=== PATIENT | female | born 1970 | race Two or more races ===

== ENCOUNTER 2017-07-05 18:03 | Emergency (ER) | payer OTHER ==
[~2017-07-05] VITALS: Ht 154.9 cm; Wt 93.9 kg
[~2017-07-05 18:03] MED LIST: ACYC1CAP23 PO; AMIT50TA3 PO; ERGO1CAP6; HYDR12.56; INSUINJ; INSUINJ2; LISI10TA6; PRED-188 PO; SIMV-8; TRAM50TA2 PO; [UNRECOGNIZED DRUG - SUPPLY]
[2017-07-05 18:30] VITALS: BP 181/84
== END 2017-07-05 22:21 | disposition home or self-care (01) ==
LOC: ER 18:08
DX: L03.116 Cellulitis of left lower limb (principal); I10 Essential (primary) hypertension; E11.9 Type 2 diabetes mellitus without complications
CPT/HCPCS: 82962

== ENCOUNTER 2017-07-09 09:02 | Inpatient (IN) | payer OTHER ==
[~2017-07-09] VITALS: Ht 170.2 cm; Wt 83.9 kg
[2017-07-09] MEDS ORDERED: PROMETHAZINE HCL 25 MG/ML 1ML IV ONE ×2 (09:45→10:00)
[2017-07-09] MEDS ORDERED: LORazepam 2MG/ML-1ML VIAL IV ONE (09:45)
[2017-07-09] MEDS ORDERED: PROMETHAZINE HCL 25 MG/ML 1ML ONE (09:46)
[2017-07-09 10:02] LABS: Basophils # (auto) 0 uL; Basophils % (auto) 0.5 % (0.0-2.0); Eosinophils # (auto) 0.2 uL; Eosinophils % (auto) 1.9 % (0.0-7.0); Hematocrit 30.6 % (36.0-46.0); Hemoglobin 10.2 g/dL (12.2-16.2); Lymphocytes # (auto) 0.7 uL; Lymphocytes % (auto) 8.1 % (10.0-50.0); Mean Corpuscular Hemoglobin 29.7 pg (28.0-32.0); Mean Corpuscular Hgb Conc. 33.4 g/dL (32.0-36.0); Monocytes # (auto) 0.6 uL; Monocytes % (auto) 6.6 % (0.0-12.0); Neutrophils # (auto) 7.1 uL; Neutrophils % (auto) 82.9 % (37.0-80.0); Platelet Count (auto) 245 10^3/uL (140-450); Red Blood Cells 3.44 10^6/uL (4.0-5.20); Red Cell Distribution Width 13.4 % (11.8-14.3); White Blood Cell 8.6 10^3/uL (4.4-10.8)
[2017-07-09 10:22] LABS: Albumin 2.8 g/dL (3.4-5.0); BUN/Creatinine Ratio 5.7; Bilirubin, Total 0.2 mg/dL (0.2-1.0); Calcium 8.1 mg/dL (8.5-10.1); Potassium 4.7 mmol/L (3.5-5.1)
[2017-07-09 13:55] LABS: Urine Bacteria FEW /hpf (None Seen); Urine Blood Negative /uL (Negative); Urine Specific Gravity 1.015 (1.001-1.035); Urine WBC 11 /hpf (0 - 5)
[2017-07-09] MEDS ORDERED: cefTRIAXone 1GM/10ml IVPUSH 10 ML IV ONE (16:30)
[2017-07-09] MEDS ORDERED: ONDANSETRON HCL 4 MG/2 ML VIAL IV PRN (22:45)
[2017-07-09] MEDS ORDERED: NITROGLYCERIN 0.4 MG SL TAB SL PRN (22:45)
[2017-07-09] MEDS ORDERED: TEMAZEPAM 15 MG CAP PO PRN (22:45)
[2017-07-09] MEDS ORDERED: HYDROcodone-ACET 5/325MG TAB PO PRN (22:45)
[2017-07-09] MEDS ORDERED: DEXTROSE (50%) 50ML SYRG IV PRN (22:45)
[2017-07-09] MEDS ORDERED: ACETAMINOPHEN 325 MG TAB PO PRN (22:45)
[2017-07-09] MEDS ORDERED: MORPHINE SULFATE 4 MG/ML SYR/VIAL IV PRN (22:45)
[2017-07-10] MEDS: ACCU-CHEK COMFORT CURVE STRIP VI SCH ×3 (00:22→12:14)
[2017-07-10] MEDS: InsuLIN REG 1unit/0.01ml Soln (100units/ml) SC SCH ×3 (00:24→12:15)
[2017-07-10 00:30] VITALS: BP 170/92
[2017-07-10] MEDS ORDERED: PANT40TA2 PO (01:52)
[2017-07-10] MEDS ORDERED: CARV6.25 PO (01:52)
[2017-07-10] MEDS ORDERED: B-COTAB10 OR (01:52)
[2017-07-10] MEDS ORDERED: SULF400T11 PO (01:52)
[2017-07-10] MEDS ORDERED: CALC667C PO (01:52)
[2017-07-10] MEDS ORDERED: CALC0.5C PO (01:52)
[2017-07-10] MEDS ORDERED: CINA30TA2 PO (01:52)
[2017-07-10] MEDS ORDERED: BUME1TAB28 PO (01:52)
[2017-07-10] MEDS ORDERED: HYDR50TA15 PO (01:52)
[2017-07-10] MEDS ORDERED: SEVE800T8 PO (01:52)
[2017-07-10] MEDS ORDERED: CEPH500C PO (01:52)
[2017-07-10 03:00] VITALS: BP 149/73
[2017-07-10 04:38] VITALS: BP 130/64
[2017-07-10] MEDS ORDERED: hydrALAZINE HCL 25 MG TAB PO SCH (06:00)
[2017-07-10 07:38] LABS: Albumin 2.7 g/dL (3.4-5.0); BUN/Creatinine Ratio 5.9; Basophils # (auto) 0.1 uL; Basophils % (auto) 0.8 % (0.0-2.0); Bilirubin, Total 0.2 mg/dL (0.2-1.0); Eosinophils # (auto) 0.8 uL; Eosinophils % (auto) 9.6 % (0.0-7.0); Hematocrit 29.2 % (36.0-46.0); Hemoglobin 9.7 g/dL (12.2-16.2); Lymphocytes # (auto) 1.4 uL; Lymphocytes % (auto) 16.7 % (10.0-50.0); Mean Corpuscular Hemoglobin 30.2 pg (28.0-32.0); Mean Corpuscular Hgb Conc. 33.3 g/dL (32.0-36.0); Mean Corpuscular Volume 90.7 fL (80.0-100.0); Monocytes % (auto) 11.6 % (0.0-12.0); Neutrophils # (auto) 5.1 uL; Neutrophils % (auto) 61.3 % (37.0-80.0); Nucleated Red Blood Cells % 0.1 %; Platelet Count (auto) 238 10^3/uL (140-450); Potassium 4.4 mmol/L (3.5-5.1); Red Blood Cells 3.22 10^6/uL (4.0-5.20); Red Cell Distribution Width 13.7 % (11.8-14.3); Total Protein 6.5 g/dL (6.4-8.2); White Blood Cell 8.4 10^3/uL (4.4-10.8)
[2017-07-10 08:00] VITALS: BP 155/79
[2017-07-10 08:29] VITALS: BP 155/79
[2017-07-10] MEDS ORDERED: CARVEDILOL 3.125 MG TAB PO SCH (10:00)
[2017-07-10] MEDS ORDERED: PANTOPRAZOLE 40 MG TAB PO SCH (10:00)
[2017-07-10] MEDS ORDERED: predniSONE 20 MG TAB PO SCH (10:00)
[2017-07-10] MEDS ORDERED: LISINOPRIL 10 MG TAB PO SCH (10:00)
[2017-07-10 11:51] VITALS: BP 156/79
[2017-07-10] MEDS ORDERED: cefTRIAXone 1GM/10ml IVPUSH 10 ML IV SCH (22:00)
[2017-07-10] MEDS ORDERED: ATORVASTATIN 20 MG TAB PO SCH (22:00)
[2017-07-10] MEDS ORDERED: PATIENTS OWN MEDICATION (simvastatin 20 MG) PO SCH (22:00)
[2017-07-10] MEDS ORDERED: AMITRIPTYLINE HCL 25 MG TAB PO SCH (22:00)
== END 2017-07-10 14:00 | disposition left against medical advice (07) | DRG 637 ==
LOC: EDBD 09:02 → ER 09:02 → EDUNIT# 09:02 → TELE 09:03 → TELE-EAST 07-10 00:30
PROVIDERS: ADMIT Nurse Practitioner; ATTEND Nurse Practitioner
DX: E11.65 Type 2 diabetes mellitus with hyperglycemia (principal); N18.6 End stage renal disease; I12.0 Hypertensive chronic kidney disease with stage 5 chronic kidney disease or end stage renal disease; E11.22 Type 2 diabetes mellitus with diabetic chronic kidney disease; N39.0 Urinary tract infection, site not specified; R42 Dizziness and giddiness; Z53.21 Procedure and treatment not carried out due to patient leaving prior to being seen by health care provider; D63.8 Anemia in other chronic diseases classified elsewhere; Z90.49 Acquired absence of other specified parts of digestive tract; Z99.2 Dependence on renal dialysis; Z79.899 Other long term (current) drug therapy
CPT/HCPCS: 36415; 70450; 71045; 74176; 80053; 81001; 82962; 83880; 84484; 85025; 87081; 93005; 96374; 96375; J1815

== ENCOUNTER 2018-05-25 13:52 | Emergency (ER) | payer OTHER ==
[~2018-05-25] VITALS: Ht 157.5 cm; Wt 90.7 kg
[~2018-05-25 13:52] MED LIST changes: -ACYC1CAP23 PO; -AMIT50TA3 PO; +B-COTAB10 OR; +CALC0.5C PO; +CALC667C PO; +CARV6.25 PO; +CINA30TA2 PO; -ERGO1CAP6; -HYDR12.56; +HYDR50TA15 PO; -INSUINJ2; -LISI10TA6; +PANT40TA2 PO; -PRED-188 PO; +SEVE800T8 PO; -SIMV-8; -TRAM50TA2 PO; -[UNRECOGNIZED DRUG - SUPPLY]
[2018-05-25 14:14] VITALS: BP 125/71
== END 2018-05-25 14:35 | disposition home or self-care (01) ==
LOC: ER 13:56
DX: L30.8 Other specified dermatitis (principal); I87.8 Other specified disorders of veins; E11.22 Type 2 diabetes mellitus with diabetic chronic kidney disease; I12.9 Hypertensive chronic kidney disease with stage 1 through stage 4 chronic kidney disease, or unspecified chronic kidney disease; N18.9 Chronic kidney disease, unspecified

== ENCOUNTER 2018-12-01 13:43 | Inpatient (IN) | payer OTHER ==
[~2018-12-01] VITALS: Ht 157.5 cm; Wt 102.0 kg
[2018-12-01 15:47] LABS: INR < 0.93 (0.9-1.15); Partial Thromboplastin Time 29.1 sec (23.64-32.05)
[2018-12-01 16:01] LABS: Hematocrit 34.3 % (36.0-46.0); Red Blood Cells 3.69 10^6/uL (4.0-5.20); Red Cell Distribution Width 15.4 % (11.8-14.3)
[2018-12-01 16:03] LABS: Mean Corpuscular Hemoglobin 29.8 pg (28.0-32.0); Mean Corpuscular Volume 93.1 fL (80.0-100.0); Platelet Count (auto) 338 10^3/uL (140-450); White Blood Cell 9.5 10^3/uL (4.4-10.8)
[2018-12-01 16:07] LABS: Band Neutrophils % (manual) 0; Basophils % (manual) 0 (0.0-2.0); Blast Cells 0; Myelocytes % 0; Promyelocytes % 0; Reactive Lymphocytes 0
[2018-12-01] MEDS ORDERED: MORPHINE SULFATE 4 MG/ML SYR/VIAL IV ONE (16:30)
[2018-12-01] MEDS ORDERED: ONDANSETRON HCL 4 MG/2 ML VIAL IV ONE (16:30)
[2018-12-01 16:58] LABS: Eosinophils % (manual) 6 (0-7); Lymphocytes % (manual) 17 (10.0-50.0); Metamyelocytes % 1; Monocytes % (manual) 7 (0-12)
[2018-12-01 17:02] LABS: Albumin 2.6 g/dL (3.4-5.0); Calcium 8.6 mg/dL (8.5-10.1); Potassium 4.3 mmol/L (3.5-5.1)
[2018-12-01 17:05] LABS: BUN/Creatinine Ratio 5.5; Bilirubin, Total 0.5 mg/dL (0.2-1.0); Total Protein 8.1 g/dL (6.4-8.2)
[2018-12-01] MEDS ORDERED: SODIUM CHLORIDE 0.9% 1,000 ML IV ONE (17:30)
[2018-12-01] MEDS ORDERED: InsuLIN REG 1unit/0.01ml Soln (100units/ml) IV ONE (17:30)
[2018-12-01] MEDS ORDERED: TEMAZEPAM 15 MG CAP PO PRN (21:00)
[2018-12-01] MEDS ORDERED: DEXTROSE (50%) 50ML SYRG IV PRN (21:00)
[2018-12-01] MEDS ORDERED: HYDROcodone-ACET 5/325MG TAB PO PRN (21:00)
[2018-12-01] MEDS ORDERED: ONDANSETRON HCL 4 MG/2 ML VIAL IV PRN (21:00)
[2018-12-01] MEDS: cefTRIAXone 1GM/50ML D5W 50 ML IV SCH (21:50)
[2018-12-01 22:45] VITALS: BP 145/87
[2018-12-01] MEDS: CLINDAMYCIN 600MG IV 50 ML IV SCH (23:07)
[2018-12-01] MEDS: CARVEDILOL 3.125 MG TAB PO SCH (23:08)
[2018-12-01 23:28] VITALS: BP 145/87
[2018-12-01] MEDS: InsuLIN REG 1unit/0.01ml Soln (100units/ml) SC SCH (23:38)
[2018-12-01] MEDS: ACCU-CHEK COMFORT CURVE STRIP VI SCH (23:39)
[2018-12-02 05:00] VITALS: BP 123/44
[2018-12-02] MEDS: CLINDAMYCIN 600MG IV 50 ML IV SCH ×3 (05:29→21:01)
[2018-12-02] MEDS: ACCU-CHEK COMFORT CURVE STRIP VI SCH ×4 (05:31→16:06)
[2018-12-02] MEDS: InsuLIN REG 1unit/0.01ml Soln (100units/ml) SC SCH ×4 (05:31→16:21)
[2018-12-02 05:36] LABS: Hemoglobin 9.3 g/dL (12.2-16.2); Mean Corpuscular Hemoglobin 30.3 pg (28.0-32.0); Mean Corpuscular Hgb Conc. 33.2 g/dL (32.0-36.0); Mean Corpuscular Volume 91.3 fL (80.0-100.0); Platelet Count (auto) 323 10^3/uL (140-450); Red Blood Cells 3.07 10^6/uL (4.0-5.20); Red Cell Distribution Width 15.6 % (11.8-14.3); White Blood Cell 9.1 10^3/uL (4.4-10.8)
[2018-12-02 05:46] LABS: Basophils % (manual) 0 (0.0-2.0); Blast Cells 0; Metamyelocytes % 0; Myelocytes % 0; Promyelocytes % 0; Reactive Lymphocytes 0
[2018-12-02 06:09] LABS: BUN/Creatinine Ratio 5.5; Calcium 8.1 mg/dL (8.5-10.1); Potassium 4.7 mmol/L (3.5-5.1)
[2018-12-02 06:23] LABS: Band Neutrophils % (manual) 3; Lymphocytes % (manual) 7 (10.0-50.0)
[2018-12-02 06:24] LABS: Eosinophils % (manual) 7 (0-7); Monocytes % (manual) 14 (0-12)
[2018-12-02 08:00] VITALS: BP 121/65
[2018-12-02] MEDS ORDERED: CALCIUM ACETATE 667 MG CAP PO SCH (08:00)
[2018-12-02] MEDS ORDERED: SEVELAMER 800 MG TAB PO SCH (08:00)
[2018-12-02] MEDS: SEVELAMER 800 MG TAB PO SCH ×3 (08:04→18:27)
[2018-12-02] MEDS: cefTRIAXone 1GM/50ML D5W 50 ML IV SCH (08:04)
[2018-12-02] MEDS: ACETAMINOPHEN 325 MG TAB PO PRN ×3 (08:43→21:01)
[2018-12-02] MEDS: PANTOPRAZOLE 40 MG TAB PO SCH (10:42)
[2018-12-02] MEDS: CARVEDILOL 3.125 MG TAB PO SCH ×2 (10:42→21:02)
[2018-12-02 13:00] VITALS: BP 108/54
[2018-12-02 16:42] VITALS: BP 120/59
[2018-12-02] MEDS: Ensure HIGH Protein Chocolate 8oz Bottle PO SCH (18:00)
[2018-12-02] MEDS ORDERED: DEXTROSE (50%) 50ML SYRG IV PRN (19:15)
[2018-12-02 20:00] VITALS: BP 123/59
[2018-12-02 22:00] VITALS: BP 115/62
[2018-12-02 23:18] LABS: Urine Bacteria FEW /hpf (None Seen); Urine Blood 1+ /uL (Negative); Urine WBC 82 /hpf (0 - 5)
[2018-12-03] MEDS: ACCU-CHEK COMFORT CURVE STRIP VI SCH ×4 (00:23→17:44)
[2018-12-03] MEDS: InsuLIN REG 1unit/0.01ml Soln (100units/ml) SC SCH ×4 (00:23→17:44)
[2018-12-03 05:00] VITALS: BP 109/49
[2018-12-03 06:08] LABS: Hematocrit 27.1 % (36.0-46.0); Mean Corpuscular Hemoglobin 30.5 pg (28.0-32.0); Mean Corpuscular Hgb Conc. 33.3 g/dL (32.0-36.0); Mean Corpuscular Volume 91.5 fL (80.0-100.0); Platelet Count (auto) 326 10^3/uL (140-450); Red Blood Cells 2.96 10^6/uL (4.0-5.20); Red Cell Distribution Width 15.3 % (11.8-14.3); White Blood Cell 9.1 10^3/uL (4.4-10.8)
[2018-12-03 06:15] LABS: Basophils % (manual) 0 (0.0-2.0); Blast Cells 0; Metamyelocytes % 0; Myelocytes % 0; Promyelocytes % 0; Reactive Lymphocytes 0
[2018-12-03] MEDS: ACETAMINOPHEN 325 MG TAB PO PRN ×2 (06:15→20:06)
[2018-12-03] MEDS: CLINDAMYCIN 600MG IV 50 ML IV SCH ×3 (06:24→21:52)
[2018-12-03 06:30] LABS: BUN/Creatinine Ratio 5.4; Calcium 8.1 mg/dL (8.5-10.1); Potassium 3.9 mmol/L (3.5-5.1)
[2018-12-03 07:06] LABS: Band Neutrophils % (manual) 3; Eosinophils % (manual) 3 (0-7); Lymphocytes % (manual) 15 (10.0-50.0); Monocytes % (manual) 16 (0-12)
[2018-12-03] MEDS: Ensure HIGH Protein Chocolate 8oz Bottle PO SCH ×3 (08:00→18:00)
[2018-12-03 08:30] VITALS: BP 99/52
[2018-12-03] MEDS: CARVEDILOL 3.125 MG TAB PO SCH ×2 (10:00→21:52)
[2018-12-03] MEDS: SEVELAMER 800 MG TAB PO SCH ×3 (10:29→17:43)
[2018-12-03] MEDS: PANTOPRAZOLE 40 MG TAB PO SCH (10:29)
[2018-12-03] MEDS: cefTRIAXone 1GM/50ML D5W 50 ML IV SCH (10:29)
[2018-12-03 13:00] VITALS: BP 114/49
[2018-12-03 16:50] VITALS: BP 125/70
[2018-12-03 22:18] VITALS: BP 154/57
[2018-12-04] MEDS: ACCU-CHEK COMFORT CURVE STRIP VI SCH ×3 (00:28→12:47)
[2018-12-04] MEDS: InsuLIN REG 1unit/0.01ml Soln (100units/ml) SC SCH ×3 (00:28→12:48)
[2018-12-04 05:12] LABS: Hematocrit 27.4 % (36.0-46.0); Mean Corpuscular Hemoglobin 30.2 pg (28.0-32.0); Mean Corpuscular Hgb Conc. 32.9 g/dL (32.0-36.0); Mean Corpuscular Volume 91.8 fL (80.0-100.0); Platelet Count (auto) 329 10^3/uL (140-450); Red Blood Cells 2.99 10^6/uL (4.0-5.20); Red Cell Distribution Width 15.3 % (11.8-14.3); White Blood Cell 10.9 10^3/uL (4.4-10.8)
[2018-12-04 05:23] VITALS: BP 108/45
[2018-12-04 05:29] LABS: Basophils % (manual) 0 (0.0-2.0); Blast Cells 0; Metamyelocytes % 0; Myelocytes % 0; Promyelocytes % 0; Reactive Lymphocytes 0
[2018-12-04 05:31] LABS: Calcium 8.3 mg/dL (8.5-10.1); Potassium 3.9 mmol/L (3.5-5.1)
[2018-12-04 05:33] LABS: BUN/Creatinine Ratio 5.1
[2018-12-04] MEDS: CLINDAMYCIN 600MG IV 50 ML IV SCH ×2 (06:02→14:00)
[2018-12-04 06:15] LABS: Band Neutrophils % (manual) 4; Eosinophils % (manual) 6 (0-7); Lymphocytes % (manual) 12 (10.0-50.0); Monocytes % (manual) 5 (0-12)
[2018-12-04] MEDS: Ensure HIGH Protein Chocolate 8oz Bottle PO SCH ×2 (08:00→12:00)
[2018-12-04] MEDS: cefTRIAXone 1GM/50ML D5W 50 ML IV SCH (08:57)
[2018-12-04] MEDS: SEVELAMER 800 MG TAB PO SCH ×2 (08:57→12:47)
[2018-12-04 09:00] VITALS: BP 97/49
[2018-12-04] MEDS: CARVEDILOL 3.125 MG TAB PO SCH (10:00)
[2018-12-04] MEDS: PANTOPRAZOLE 40 MG TAB PO SCH (10:16)
[2018-12-04 14:17] VITALS: BP 132/69
== END 2018-12-04 15:15 | disposition home or self-care (01) | DRG 602 ==
LOC: ER 13:43 → OVERFLOW 13:44 → WEST WING 22:20
PROVIDERS: ADMIT Nurse Practitioner; ATTEND Internal Medicine
DX: L03.116 Cellulitis of left lower limb (principal); N18.6 End stage renal disease; N17.9 Acute kidney failure, unspecified; N25.81 Secondary hyperparathyroidism of renal origin; E87.1 Hypo-osmolality and hyponatremia; R65.10 Systemic inflammatory response syndrome (SIRS) of non-infectious origin without acute organ dysfunction; E44.0 Moderate protein-calorie malnutrition; I12.0 Hypertensive chronic kidney disease with stage 5 chronic kidney disease or end stage renal disease; Z68.41 Body mass index [BMI] 40.0-44.9, adult; D63.1 Anemia in chronic kidney disease; E11.21 Type 2 diabetes mellitus with diabetic nephropathy; E11.22 Type 2 diabetes mellitus with diabetic chronic kidney disease; E66.01 Morbid (severe) obesity due to excess calories; Z99.2 Dependence on renal dialysis; Z90.49 Acquired absence of other specified parts of digestive tract; Z83.3 Family history of diabetes mellitus; Z79.899 Other long term (current) drug therapy
CPT/HCPCS: 36415; 78582; 80048; 80053; 81001; 82010; 82962; 83036; 85007; 85025; 85027; 85379; 85610; 85730; 86141; 87040; 87081; 87086; 93971; 96365; 96375; G0378; J0696; J1815; J2405; J3490

== ENCOUNTER 2019-05-15 12:29 | Emergency (ER) | payer OTHER ==
[~2019-05-15] VITALS: Ht 157.5 cm; Wt 90.7 kg
[2019-05-15 13:15] VITALS: BP 111/43
== END 2019-05-15 17:56 | disposition left against medical advice (07) ==
LOC: ER 12:29
DX: M79.605 Pain in left leg (principal); R50.9 Fever, unspecified; M54.2 Cervicalgia; R53.1 Weakness; I12.9 Hypertensive chronic kidney disease with stage 1 through stage 4 chronic kidney disease, or unspecified chronic kidney disease; E11.22 Type 2 diabetes mellitus with diabetic chronic kidney disease; N18.9 Chronic kidney disease, unspecified

== ENCOUNTER 2019-07-18 13:23 | Inpatient (IN) | payer OTHER ==
[~2019-07-18] VITALS: Ht 157.5 cm; Wt 100.5 kg
[2019-07-18] MEDS ORDERED: CLINDAMYCIN 600MG IV 50 ML IV ONE (14:45)
[2019-07-18] MEDS ORDERED: cefTRIAXone 1GM/50ML D5W 50 ML IV ONE (14:45)
[2019-07-18 15:23] LABS: Basophils # (auto) 0 10 ^3/uL (0-0.2); Basophils % (auto) 0.4 % (0.0-2.0); Eosinophils # (auto) 0.5 10 ^3/uL (0-0.8); Eosinophils % (auto) 5.4 % (0.0-7.0); Hematocrit 26.6 % (36.0-46.0); Hemoglobin 8.8 g/dL (12.2-16.2); Lymphocytes # (auto) 0.9 10 ^3/uL (0.4-5.4); Lymphocytes % (auto) 9.3 % (10.0-50.0); Mean Corpuscular Hemoglobin 30.5 pg (28.0-32.0); Mean Corpuscular Hgb Conc. 32.9 g/dL (32.0-36.0); Mean Corpuscular Volume 92.5 fL (80.0-100.0); Monocytes % (auto) 9.6 % (0.0-12.0); Neutrophils # (auto) 7.5 10 ^3/uL (1.6-8.6); Neutrophils % (auto) 75.3 % (37.0-80.0); Platelet Count (auto) 283 10^3/uL (140-450); Red Blood Cells 2.87 10^6/uL (4.0-5.20); White Blood Cell 9.9 10^3/uL (4.4-10.8)
[2019-07-18 15:34] LABS: Albumin 2.6 g/dL (3.4-5.0); BUN/Creatinine Ratio 5.8; Calcium 7.8 mg/dL (8.5-10.1); Potassium 4.3 mmol/L (3.5-5.1)
[2019-07-18 15:43] LABS: Bilirubin, Total 0.4 mg/dL (0.2-1.0); Total Protein 7.6 g/dL (6.4-8.2)
[2019-07-18] MEDS ORDERED: MORPHINE SULF INJ 2 MG/ML SYRINGE 1ML IV PRN ×2 (16:30→16:45)
[2019-07-18] MEDS ORDERED: NITROGLYCERIN 0.4 MG SL TAB SL PRN ×2 (16:30→16:45)
[2019-07-18] MEDS ORDERED: MUPIROCIN 2% OINT 15gm or 22gm TOP ONE (16:45)
[2019-07-18] MEDS ORDERED: ONDANSETRON HCL 4 MG/2 ML VIAL IV PRN (16:45)
[2019-07-18] MEDS ORDERED: LORazepam 0.5 MG TAB PO PRN (16:45)
[2019-07-18] MEDS ORDERED: TRIAMCINOLONE ACET 0.1% TOPICAL CREAM 15GM TOP ONE (16:45)
[2019-07-18] MEDS ORDERED: ALUM & MAG HYDROX-SIMETH LIQ(MAALOX) 30 ML PO PRN (16:45)
[2019-07-18] MEDS ORDERED: DOCUSATE SOD 100 MG CAP PO PRN (16:45)
[2019-07-18] MEDS ORDERED: VANCOMYCIN PER PHARMACY 0 MG IV SCH (16:45)
[2019-07-18] MEDS ORDERED: VANCOMYCIN 1GM/250ML 250 ML IV ONE (17:15)
[2019-07-18 17:25] LABS: Cholesterol 208 mg/dL (< 200)
[2019-07-18 17:28] LABS: HDL Cholesterol 76 mg/dL (40-59); LDL Cholesterol 108 mg/dL (< 100); Triglycerides 81 mg/dL (< 150)
--- NOTE | 2019-07-18 18:13 | NUR ---
Telemetry admit from ER CHERIE BOOTHE admitted to Telemetry unit after SBAR received. Patient oriented to Susan Cuevas, primary RN, unit, room, bed, and unit policies regarding patient care and visiting hours. Patient now on continuous telemetry monitoring, tele box #31 and telemetry reading on arrival to unit is SR. Patient placed on bedside oxygen, weighed by bedscale and encouraged to call if they need something. All questions and concerns addressed, patient verbalized understanding.
[2019-07-18 18:16] VITALS: BP 194/87
--- NOTE | 2019-07-18 18:25 | NUR ---
Patients Blood Pressure is 194/87, paged for orders.
[2019-07-18] MEDS: TRIAMCINOLONE ACET 0.1% TOPICAL CREAM 15GM TOP SCH ×2 (18:30→21:58)
[2019-07-18] MEDS: MUPIROCIN 2% OINT 15gm or 22gm TOP SCH ×2 (18:30→21:58)
[2019-07-18] MEDS ORDERED: LABETALOL HCL 5 MG/ML 4ML SYRINGE IV PRN (18:45)
[2019-07-18] MEDS ORDERED: hydrALAZINE HCL 25 MG TAB PO PRN (18:45)
--- NOTE | 2019-07-18 18:45 | NUR ---
pain patient c/o left leg , rates it 11/07. Will medicate per MD orders.
--- NOTE | 2019-07-18 19:08 | NUR ---
MED REC PT UNABLE TO RECALL HOME MEDICATIONS, STATES " I DONT HAVE A LIST AND MY SON CANNOT FIND MY MEDICATION, MY ALSO CANNOT BRING THEM BECAUSE HE IS A VIDEO EDITING INTERN", PRIMARY CALLIE WALKER INFORMED
[2019-07-18] MEDS: BUMETANIDE 1 MG TAB PO SCH (19:11)
[2019-07-18] MEDS: FERROUS SULFATE 325 MG TAB PO SCH (19:12)
[2019-07-18] MEDS: MORPHINE SULF INJ 2 MG/ML SYRINGE 1ML IV PRN (19:12)
--- NOTE | 2019-07-18 19:36 | NUR ---
Closing note Patient is comfortably resting in bed, no s/s of distress/noted/stated. Bed at lowest locked position and call light within reach. Report given to NOC RN
[2019-07-18 20:00] VITALS: BP 194/87
--- NOTE | 2019-07-18 20:10 | NUR ---
PT MOVED TO 205 BECAUSE SHE IS ON PERITONEAL DIALYSIS.
[2019-07-18] MEDS: HYDROcodone-ACET 5/325MG TAB PO PRN (21:38)
[2019-07-18 22:00] VITALS: BP 148/78
--- NOTE | 2019-07-18 22:08 | NUR ---
OINTMENT X2 APPLIED TO LEFT UPPER THIGH AND RIGHT CALF. PT TOLERATED WELL.
[2019-07-18] MEDS ORDERED: hydrALAZINE HCL 20 MG/ML VL IV PRN (22:45)
[2019-07-18] MEDS ORDERED: hydrALAZINE HCL 25 MG TAB PO ONE (22:45)
--- NOTE | 2019-07-18 23:50 | NUR ---
ZOSYN LATE IN BEING SPIKED FOR INFUSION BECAUSE VANCOMYCIN IS STILL RUNNING.
[2019-07-18] MEDS: PIPERACILLIN-TAZOB 2.25GM 50 ML IV SCH (23:58)
--- NOTE | 2019-07-19 00:22 | NUR ---
CALL PLACED TO [facility] BECAUSE PT STATES SHE FEELS HER BLOOD SUGAR IS HIGH. ACCUCHECK REVEALS A SUGAR OF 323.
--- NOTE | 2019-07-19 00:49 | NUR ---
ORDERS RECEIVED FOR SLIDING SCALE;PT MEDICATED WITH 8 UNITS REGULAR INSULIN. WILL CONTINUE TO MONITOR.
[2019-07-19] MEDS: MORPHINE SULF INJ 2 MG/ML SYRINGE 1ML IV PRN (00:56)
[2019-07-19] MEDS ORDERED: DEXTROSE (50%) 50ML SYRG IV PRN ×2 (01:00→08:15)
[2019-07-19] MEDS: InsuLIN REG 1unit/0.01ml Soln (100units/ml) SC SCH ×5 (01:04→17:26)
[2019-07-19 05:00] VITALS: BP 136/73
[2019-07-19 05:22] LABS: Eosinophils # (auto) 0.6 10 ^3/uL (0-0.8); Lymphocytes # (auto) 0.7 10 ^3/uL (0.4-5.4); Lymphocytes % (auto) 7.5 % (10.0-50.0); Neutrophils # (auto) 6.5 10 ^3/uL (1.6-8.6)
[2019-07-19] MEDS: BUMETANIDE 1 MG TAB PO SCH ×2 (05:22→17:23)
[2019-07-19 05:26] LABS: Basophils # (auto) 0.1 10 ^3/uL (0-0.2); Basophils % (auto) 0.6 % (0.0-2.0); Hematocrit 25.7 % (36.0-46.0); Hemoglobin 8.4 g/dL (12.2-16.2); Mean Corpuscular Hemoglobin 30.3 pg (28.0-32.0); Mean Corpuscular Hgb Conc. 32.6 g/dL (32.0-36.0); Mean Corpuscular Volume 93.1 fL (80.0-100.0); Monocytes % (auto) 11.1 % (0.0-12.0); Neutrophils % (auto) 73.8 % (37.0-80.0); Platelet Count (auto) 274 10^3/uL (140-450); Red Blood Cells 2.75 10^6/uL (4.0-5.20); Red Cell Distribution Width 14.5 % (11.8-14.3); White Blood Cell 8.8 10^3/uL (4.4-10.8)
[2019-07-19] MEDS: HYDROcodone-ACET 5/325MG TAB PO PRN (05:29)
[2019-07-19 05:36] LABS: INR 1.03 (0.9-1.15); Partial Thromboplastin Time 29.3 sec (23.64-32.05)
[2019-07-19 05:41] LABS: Albumin 2.6 g/dL (3.4-5.0); Calcium 7.8 mg/dL (8.5-10.1); Magnesium 2.5 mg/dL (1.6-2.6); Potassium 4.1 mmol/L (3.5-5.1)
[2019-07-19 05:45] LABS: BUN/Creatinine Ratio 5.7; Bilirubin, Total 0.4 mg/dL (0.2-1.0); Total Protein 7.5 g/dL (6.4-8.2)
--- NOTE | 2019-07-19 05:57 | NUR ---
[facility] SWAB SENT.
[2019-07-19] MEDS ORDERED: ACCU-CHEK COMFORT CURVE STRIP VI SCH (06:00)
[2019-07-19 06:34] LABS: Phosphorus 11.9 mg/dL (2.5-4.90)
--- NOTE | 2019-07-19 06:46 | NUR ---
DR ALVARADO'S SERVICE NOTIFIED REGARDING THREE CRITICALS-PHOS11.9 CREATININE 12.7 AND BUN OF 72. PT IS ON PERITONEAL DIALYSIS AND HAS HER OWN MACHINE IN THE ROOM.
--- NOTE | 2019-07-19 07:10 | NUR ---
PHARMACY CALLED BECAUSE ACCUCHECK TIMES NEED TO BE READJUSTED.
--- NOTE | 2019-07-19 07:38 | NUR ---
Opening Note Assumed pt care from NOC RN. Pt is a/ox4 with no s/s of distress or SOB. Pt is currently sitting upright in bed with no complaints at this time. Pt has own peritoneal dialysis machine at bedside. Per pt, she does her own dialysis treatment every night. Discussed POC with pt, pending nephrology consult. Safety measures maintained with call light within reach, bed in lowest position and side rails up. Will continue to monitor.
[2019-07-19] MEDS: FERROUS SULFATE 325 MG TAB PO SCH ×4 (07:42→17:07)
--- NOTE | 2019-07-19 08:33 | NUR ---
Dr Cristiane Vivar MD requested update on pt. requests that pt have supplies for self peritoneal dialysis 1 L solution at 2.5% Q4Hrs. Will provide Addendum: 07/19/19 at 0837 by QIAN MUIR RN RN Correction; Qday not Q4 at 2L.
[2019-07-19 09:00] VITALS: BP 160/70
[2019-07-19] MEDS: PIPERACILLIN-TAZOB 2.25GM 50 ML IV SCH (09:10)
[2019-07-19] MEDS: CINACALCET HYDROCHLORIDE 30 MG TAB PO SCH (09:11)
[2019-07-19] MEDS: hydrALAZINE HCL 25 MG TAB PO SCH ×2 (09:11→22:00)
[2019-07-19] MEDS: CALCITRIOL 0.25 MCG CAP PO SCH (09:11)
[2019-07-19] MEDS: ENOXAPARIN SOD 30 MG/0.3 ML SYRINGE SC SCH (09:11)
[2019-07-19] MEDS: MUPIROCIN 2% OINT 15gm or 22gm TOP SCH ×2 (09:12→22:00)
--- NOTE | 2019-07-19 09:30 | NUR ---
Elevated BP Reported Bp of 160/70 with a HR of 66 reported. Will provide daily BP meds and reassess. Addendum: 07/19/19 at 1018 by QIAN MUIR RN RN Reassessed BP, currently 131/58 with a HR of 69. Will continue to monitor.
[2019-07-19] MEDS ORDERED: ENOXAPARIN SOD 40 MG/0.4 ML SYRINGE SC SCH (10:00)
[2019-07-19 10:18] VITALS: BP 131/58
--- NOTE | 2019-07-19 10:28 | NUR ---
WOUND CARE NOTE: Wound care in to see patient per wound care request regarding "various wounds to lower extremities". Patient is 49 years old female with admitting diagnosis of Bilateral Lower Extremity Cellulitis. Patient with history of CKF, DM and Htn. Patient is resting in bed in Rm. 205. Patient is awake, alert and oriented. She's ambulatory and self turning and repositioning. Her Jonnie score is 21. Patient is in no stated pain at this time. Patient noted with multi small dry brown lesion to BLE, no drainage/odor noted. Her LLE noted with hyperpigmented skin. She has history of cellulitis. Patient is receiving BID cleaning and application of topical ointment to BLE per MD order. No pressure injury noted. Patient tolerated well. No further wound care monitoring needed at this time. RECOMMENDATION: Nursing to continue with BID cleaning and application of topical ointment to BLE per MD order, reconsult for active wound, pressure injury, low Jonnie score of 12 and below. Addendum: 07/19/19 at 1313 by Kimmy Hayward RN Amended: Links added.
[2019-07-19] MEDS: ACCU-CHEK COMFORT CURVE STRIP VI SCH ×2 (11:37→17:19)
[2019-07-19 13:00] VITALS: BP 133/59
[2019-07-19] MEDS ORDERED: VANCOMYCIN 1GM/250ML 250 ML IV ONE (14:00)
[2019-07-19 17:00] VITALS: BP 147/76
--- NOTE | 2019-07-19 19:30 | NUR ---
Opening Shift Note Assumed care of patient, awake, AAOx4. No S/S of distress/SOB or pain. On room air and ambulatory. Bed in lowest locked position, side rails up x2, call light within reach. Instructed on POC and to call for assist PRN, will continue to monitor for changes Q1hr and PRN.
[2019-07-19] MEDS ORDERED: PERITONEAL DIALYSIS 2.5% SOLN 2,000 ML IP SCH (20:00)
--- NOTE | 2019-07-19 20:15 | NUR ---
PERITONEAL DIALYSIS PATIENT MACHINE AT BEDSIDE. PHARMACY PROVIDED 2L OF PERITONEAL DIALYSIS SOLUTION, HOWEVER, PATIENT STATED SHE NEEDS TO USE POM THE SOLUTION IS 6L AND THE APPROPRIATE SIZE FOR THE DIALYSIS MACHINE. PATIENTS FAMILY MEMBER BROUGHT PERITONEAL DIALYSIS SOLUTION FROM HOME. CALLED AND LEFT MESSAGE FOR BUNCH MAKER DOCTOR FOR DR CARVER TO CHANGE ORDER TO POM. AWAITING CALL BACK.
--- NOTE | 2019-07-19 20:45 | NUR ---
REPAGED DIGITAL MARKETING STRATEGIST DOCTOR FOR DR CARVER. AWAITING CALL BACK.
[2019-07-19 21:15] VITALS: BP 168/81
--- NOTE | 2019-07-19 21:30 | NUR ---
RECEIVED CALL BACK FROM DR CARVER. PATIENT OKAY TO USE POM FOR PERITONEAL DIALYSIS. WILL CARRY OUT ORDER AND CONTINUE CARE.
[2019-07-19] MEDS ORDERED: PERITONEAL DIALYSIS 2.5% IP SCH (22:00)
[2019-07-20] MEDS: ACCU-CHEK COMFORT CURVE STRIP VI SCH ×3 (00:06→12:51)
[2019-07-20] MEDS: InsuLIN REG 1unit/0.01ml Soln (100units/ml) SC SCH ×6 (00:07→12:51)
[2019-07-20 04:33] VITALS: BP 140/56
[2019-07-20] MEDS: BUMETANIDE 1 MG TAB PO SCH (05:56)
[2019-07-20] MEDS: FERROUS SULFATE 325 MG TAB PO SCH ×2 (07:27→12:00)
[2019-07-20] MEDS: HYDROcodone-ACET 5/325MG TAB PO PRN (07:32)
[2019-07-20] MEDS ORDERED: PIPERACILLIN-TAZOB 2.25GM 50 ML IV SCH (08:00)
[2019-07-20 08:43] VITALS: BP 142/59
[2019-07-20] MEDS: CINACALCET HYDROCHLORIDE 30 MG TAB PO SCH (09:53)
[2019-07-20] MEDS: CALCITRIOL 0.25 MCG CAP PO SCH (09:53)
[2019-07-20] MEDS: TRIAMCINOLONE ACET 0.1% TOPICAL CREAM 15GM TOP SCH (09:54)
[2019-07-20] MEDS: ENOXAPARIN SOD 30 MG/0.3 ML SYRINGE SC SCH (09:54)
[2019-07-20] MEDS: hydrALAZINE HCL 25 MG TAB PO SCH (09:54)
[2019-07-20] MEDS: MUPIROCIN 2% OINT 15gm or 22gm TOP SCH (09:54)
[2019-07-20 10:58] VITALS: BP 142/59
[2019-07-20 12:58] VITALS: BP 152/58
--- NOTE | 2019-07-20 13:35 | NUR ---
Discharge instructions given as ordered. Encourage to follow up with PMD (PLEASE FOLLOW UP WITH PRIMARY CARE PROVIDER IN 3-[address] SIS ESTRADA #[phone] ADDRESS : [address] [place] [address], [place], [address] ) as instructed. All questions and concerns addressed. Patient verbalized understanding. Medication reconciliation form completed and copy given to patient. IV removed with catheter intact, pressure dressing applied. Telemetry unit returned to ICU. Patient taken to vehicle via wheelchair with all personal belongings, accompanied by staff and family member. No distress noted at time of departure.
== END 2019-07-20 13:35 | disposition home or self-care (01) | DRG 602 ==
LOC: ER 13:23 → TELE 13:24 → TELE-CENTR 17:49
PROVIDERS: ADMIT Hospitalist; ATTEND Family Medicine
DX: L03.116 Cellulitis of left lower limb (principal); E43 Unspecified severe protein-calorie malnutrition; N18.6 End stage renal disease; I12.0 Hypertensive chronic kidney disease with stage 5 chronic kidney disease or end stage renal disease; Z68.41 Body mass index [BMI] 40.0-44.9, adult; I16.1 Hypertensive emergency; D72.810 Lymphocytopenia; L03.115 Cellulitis of right lower limb; D64.9 Anemia, unspecified; E11.22 Type 2 diabetes mellitus with diabetic chronic kidney disease; E11.40 Type 2 diabetes mellitus with diabetic neuropathy, unspecified; Z79.4 Long term (current) use of insulin; Z99.2 Dependence on renal dialysis
CPT/HCPCS: 36415; 80053; 80061; 80202; 82962; 83036; 83605; 83735; 84100; 85025; 85610; 85730; 87040; 87081; 93970; 96365; 96368; G0378; J0696; J1815; J2405; J2543; J3490

== ENCOUNTER 2019-08-08 19:51 | Emergency (ER) | payer OTHER ==
[~2019-08-08] VITALS: Ht 157.5 cm; Wt 95.3 kg
[2019-08-08 21:13] LABS: Basophils # (auto) 0.1 10 ^3/uL (0-0.2); Hemoglobin 8.3 g/dL (12.2-16.2); Lymphocytes # (auto) 0.9 10 ^3/uL (0.4-5.4); Mean Corpuscular Volume 92.8 fL (80.0-100.0); Monocytes # (auto) 1.1 10 ^3/uL (0-1.3); Neutrophils # (auto) 6.1 10 ^3/uL (1.6-8.6)
[2019-08-08 21:15] LABS: Basophils % (auto) 0.8 % (0.0-2.0); Eosinophils # (auto) 0.4 10 ^3/uL (0-0.8); Hematocrit 25.6 % (36.0-46.0); Lymphocytes % (auto) 10.2 % (10.0-50.0); Mean Corpuscular Hgb Conc. 32.3 g/dL (32.0-36.0); Monocytes % (auto) 12.6 % (0.0-12.0); Neutrophils % (auto) 71.4 % (37.0-80.0); Nucleated Red Blood Cells % 0.1 %; Platelet Count (auto) 273 10^3/uL (140-450); Red Blood Cells 2.76 10^6/uL (4.0-5.20); Red Cell Distribution Width 14.5 % (11.8-14.3); White Blood Cell 8.5 10^3/uL (4.4-10.8)
[2019-08-08 21:31] LABS: Albumin 2.4 g/dL (3.4-5.0); Calcium 7.4 mg/dL (8.5-10.1); Potassium 5.2 mmol/L (3.5-5.1)
[2019-08-08 21:33] LABS: BUN/Creatinine Ratio 5.7
[2019-08-08 21:36] LABS: Bilirubin, Total 0.3 mg/dL (0.2-1.0); Total Protein 7.4 g/dL (6.4-8.2)
[2019-08-08 22:15] LABS: INR 0.99 (0.9-1.15); Partial Thromboplastin Time 27.9 sec (23.64-32.05)
[2019-08-09] VITALS: BP 148/59
[2019-08-09] MEDS ORDERED: TEMAZEPAM 15 MG CAP PO PRN (00:30)
[2019-08-09] MEDS ORDERED: SODIUM ZIRCONIUM CYCL 10 GM PAK PO ONE (00:30)
[2019-08-09] MEDS ORDERED: HYDROcodone-ACET 5/325MG TAB PO PRN (00:30)
[2019-08-09] MEDS ORDERED: ACETAMINOPHEN 325 MG TAB PO PRN (00:30)
[2019-08-09] MEDS ORDERED: LORazepam 0.5 MG TAB PO ONE (00:30)
[2019-08-09] MEDS ORDERED: DEXTROSE (50%) 50ML SYRG IV PRN (00:30)
[2019-08-09] MEDS ORDERED: InsuLIN REG 1unit/0.01ml Soln (100units/ml) SC SCH (06:00)
[2019-08-09] MEDS ORDERED: ACCU-CHEK COMFORT CURVE STRIP VI SCH (06:00)
[2019-08-09] MEDS ORDERED: hydrALAZINE HCL 25 MG TAB PO SCH (06:00)
[2019-08-09] MEDS ORDERED: BUMETANIDE 1 MG TAB PO SCH (10:00)
[2019-08-09] MEDS ORDERED: PANTOPRAZOLE 40 MG TAB PO SCH (10:00)
== END 2019-08-09 00:43 | disposition home or self-care (01) ==
LOC: ER 19:51
DX: I69.954 Hemiplegia and hemiparesis following unspecified cerebrovascular disease affecting left non-dominant side (principal); I12.0 Hypertensive chronic kidney disease with stage 5 chronic kidney disease or end stage renal disease; E11.22 Type 2 diabetes mellitus with diabetic chronic kidney disease; N18.6 End stage renal disease; D63.1 Anemia in chronic kidney disease; R79.89 Other specified abnormal findings of blood chemistry
CPT/HCPCS: 36415; 70450; 80053; 82550; 83605; 83615; 84702; 85025; 85379; 85610; 85730; 87040; 93971

== ENCOUNTER 2019-08-28 14:09 | Emergency (ER) | payer OTHER ==
[~2019-08-28] VITALS: Ht 157.5 cm; Wt 90.7 kg
[2019-08-28 15:32] VITALS: BP 127/52
[2019-08-28] MEDS ORDERED: ACETAMINOPHEN 500 MG TAB PO ONE (15:45)
== END 2019-08-28 16:22 | disposition home or self-care (01) ==
LOC: ER 14:09
DX: D17.24 Benign lipomatous neoplasm of skin and subcutaneous tissue of left leg (principal); D17.23 Benign lipomatous neoplasm of skin and subcutaneous tissue of right leg; I12.0 Hypertensive chronic kidney disease with stage 5 chronic kidney disease or end stage renal disease; E11.22 Type 2 diabetes mellitus with diabetic chronic kidney disease; N18.6 End stage renal disease